=== PATIENT | female | born 1975 | race Two or more races ===

== ENCOUNTER → 2024-10-13 | Outpatient (CLI) | payer BC, SELFPAY ==
--- NOTE | 2024-10-13 14:21 | XR_ITS ---
Examination: Shoulder,right, 3 views Technique: Shoulder AP internal rotation, AP external rotation, Y view shoulder, 3 views Exam date and time :October 13, 2024 1444 hours INDICATIONS: Right shoulder pain beginning one week ago FINDINGS: No shoulder fracture or dislocation Mild calcific tendinitis No AC joint separation IMPRESSION: Mild right shoulder calcific tendinitis
== END | disposition home or self-care (01) ==
PROVIDERS: PCP Family Medicine
DX: M75.31 Calcific tendinitis of right shoulder (principal)
CPT/HCPCS: 73030

== ENCOUNTER → 2024-12-08 | Outpatient (CLI) | payer BC, SELFPAY ==
[2024-12-08 08:11] LABS: Collection Type, Urine Clean Catch
[2024-12-08 08:41] LABS: Bilirubin,Urine Negative (Negative); Blood,Urine Negative (Negative); Clarity,Urine Clear (Clear/Hazy); Color,Urine Yellow (Lt Yel-Yel); Culture Indicated,Urine Not Indicated; Glucose, Urine Negative (Negative); Ketones,Urine Negative (Negative); Leukocyte Esterase,Urine Negative (Negative); Nitrite,Urine Negative (Negative); Protein,Urine Trace (Neg - Trace); RBC,Urine 3 /hpf (0-3); Squamous Epithelial Cell,Urine 16 /hpf (0-5); Urobilinogen,Urine Negative mg/dL (0.0-1.0); WBC,Urine 1 /hpf (0-5)
[2024-12-08 08:55] LABS: Alanine Aminotransferase 22 U/L (10-49); Albumin, Serum 4.1 gm/dL (3.5-5.0); Albumin/Globulin Ratio 1.7 (1.2-2.2); Alkaline Phosphatase 65 U/L (46-116); Anion Gap 9 (7-16); Aspartate Amino Transferase 17 U/L (0-34); BUN/Creatinine Ratio 16 Ratio (12-20); Bilirubin,Total 0.6 mg/dL (0.3-1.2); Blood Urea Nitrogen 13 mg/dL (9-23); Calcium 9.5 mg/dL (8.3-10.6); Calcium (Corrected) 9.5 mg/dL (8.5-10.1); Carbon Dioxide 23.6 mMol/L (20.0-31.0); Cardiac Risk Estimate 4.3 RATIO (3.7-5.6); Chloride 106 mMol/L (98-107); Cholesterol 237 mg/dL (132-200); Creatinine (Component) 0.8 mg/dL (0.6-1.3); Globulin 2.4 gm/dL (2.3-3.5); Glucose 84 mg/dL (74-106); HDL Cholesterol 55 mg/dL (40-60); LDL Cholesterol,Calculated 156 mg/dL (0-130); Osmolality,Calculated 276 (275-295); Potassium 4.4 mMol/L (3.4-5.1); Sodium 139 mMol/L (136-145); Thyroid Stimulating Hormone 1.93 uIU/mL (0.55-4.78); Total Protein 6.5 gm/dL (5.7-8.2); Triglycerides 131 mg/dL (30-150); eGFR > 60 See Note
[2024-12-08 09:00] LABS: Basophils # (Auto) 0.1 Thou/mm3 (0.0-0.2); Basophils % (Auto) 1 % (0-2.5); Eosinophils # (Auto) 0.1 Thou/mm3 (0.0-0.5); Eosinophils % (Auto) 2 % (0-10); Hematocrit 40.8 % (36.0-46.0); Hemoglobin 14.3 g/dL (12.0-16.0); Immature Granulocytes % (Auto) 0 % (0-0); Immature Granulocytes Auto 0.01 Thou/mm3 (0.00-0.00); Lymphocytes # (Auto) 2.2 Thou/mm3 (1.0-4.8); Lymphocytes % (Auto) 31 % (10-50); Mean Corpuscular Hemoglobin 31.6 pg (25.0-35.0); Mean Corpuscular Volume 90 fL (80-100); Monocytes # (Auto) 0.5 Thou/mm3 (0.0-0.8); Monocytes % (Auto) 7 % (0-12); Neutrophils # (Auto) 4.3 Thou/mm3 (1.8-7.7); Neutrophils % (Auto) 60 % (37-80); Nucleated Red Blood Cell % 0 /100 WBC (0); Platelet Count 248 Thou/mm3 (140-440); RDW Standard Deviation 40.2 fL (36.4-46.3); Red Blood Count 4.53 Miln/mm3 (4.00-5.20); White Blood Count 7.2 Thou/mm3 (3.6-11.0)
[2024-12-08 09:19] LABS: Vitamin B12 464 pg/mL (211-911); Vitamin D 25 Hydroxy Total 43.6 ng/mL (7.3-40.2)
== END | disposition home or self-care (01) ==
PROVIDERS: PCP Family Medicine; Referring Provider Physician Assistant; Visit Provider Physician Assistant
DX: Z00.00 Encounter for general adult medical examination without abnormal findings (principal); E55.9 Vitamin D deficiency, unspecified; E78.5 Hyperlipidemia, unspecified
CPT/HCPCS: 36415; 80053; 80061; 81001; 82306; 82607; 84443; 85025

== ENCOUNTER → 2024-12-12 | Outpatient (CLI) | payer BC, SELFPAY ==
--- NOTE | 2024-12-12 13:45 | XR_ITS ---
Examination: Breast ultrasound complete, bilateral Date and time of exam: December 12, 2024 1435 hours INDICATIONS: Ultrasound May 29, 2024 left breast 2:00 nodule 13 mm Technique: Real-time grayscale ultrasonographic imaging bilateral breasts, including all 4 quadrants as well as nipple retroareolar and axillary regions. Findings: Sonographic images right breast 12:00 cyst 4 x 4 millimeter 11:00 oval mass versus glandular tissue 6 x 7 mm 3.6 cm right axillary lymph node Sonographic images left breast 2:00 oval mass with the breast biopsy marker 13 x 13 mm 8:00 cyst 4 x 4 millimeter 3.6 cm axillary lymph node Smaller cysts IMPRESSION: BI-RADS Category 3: Probably benign findings Recommend 1 additional 6 month bilateral breast sonography follow-up to document stability of solid nodules described above
--- NOTE | 2024-12-12 14:45 | XR_ITS ---
Examination: Screening digital mammography, bilateral Computer aided detection 3-D breast Tomosynthesis, bilateral Date and time of exam: December 12, 2024 1508 hours Compared to mammograms dating to March 03, 2019 Indication: Screening Technique: Nonmagnified MLO, CC views of the breasts to been obtained, reconstructed from 3-D Tomosynthesis images. R2 computer aided detection program utilized for evaluation of suspicious masses and/or abnormal calcifications. 3-D Tomosynthesis images obtained. Findings: The breasts are heterogeneously dense, which may obscure small masses Grouped microcalcifications upper right breast posterior depth on the MLO view Impression: BI-RADS Category 0: Incomplete: Need additional imaging evaluation Grouped microcalcifications upper right breast posterior depth on the MLO view, recommend follow-up magnification spot compression views of these calcifications, recommend follow-up spot magnification views extreme posterior outer right breast CC view, right breast sonography to complete the workup
== END | disposition home or self-care (01) ==
PROVIDERS: PCP Family Medicine; Referring Provider Surgery; Visit Provider Surgery
DX: Z12.31 Encounter for screening mammogram for malignant neoplasm of breast (principal); R92.0 Mammographic microcalcification found on diagnostic imaging of breast; N63.21 Unspecified lump in the left breast, upper outer quadrant
CPT/HCPCS: 76641; 77063; 77067

== ENCOUNTER → 2025-01-01 | Outpatient (CLI) | payer BC, SELFPAY ==
[2025-01-05 06:40] LABS: Fecal Globin Result NOT DETECTED (NOT DETECTED)
== END | disposition home or self-care (01) ==
LOC: SLDO 17:17
PROVIDERS: PCP Physician Assistant; Referring Provider Physician Assistant; Visit Provider Physician Assistant
DX: Z00.00 Encounter for general adult medical examination without abnormal findings (principal); E55.9 Vitamin D deficiency, unspecified; E78.5 Hyperlipidemia, unspecified
CPT/HCPCS: 82274; G0328

== ENCOUNTER → 2025-01-24 | Outpatient (CLI) | payer BC, SELFPAY ==
--- NOTE | 2025-01-24 09:30 | XR_ITS ---
Examination: Breast ultrasound, unilateral, right complete Date and time of exam: December 24, 2024 1010 hours INDICATIONS: Mammogram December 12, 2024 grouped microcalcifications upper right breast posterior depth Technique: Real-time khan scale ultrasonographic imaging performed right breast including all 4 quadrants as well as nipple retroareolar and axillary region. Findings: 11:00 cyst 7 x 7 mm 27 mm right axillary lymph node No suspicious breast nodules IMPRESSION: BI-RADS Category 2: Benign findings
--- NOTE | 2025-01-24 10:00 | XR_ITS ---
Examination: Diagnostic digital mammography, unilateral, right Computer aided detection 3-D breast Tomosynthesis, unilateral Date and time of exam: January 24, 2025 0959 hours INDICATIONS: Mammogram December 12, 2024 grouped microcalcifications upper right breast posterior depth Technique: Nonmagnified MLO, CC views of the right breast have been obtained, reconstructed from 3-D Tomosynthesis images. R2 computer aided detection program utilized for evaluation of suspicious masses and/or abnormal calcifications. 3-D Tomosynthesis images obtained. Findings: The breasts are heterogeneously dense, which may obscure small masses Probably benign secretory microcalcifications right breast Impression: BI-RADS category 3: Probably benign findings One additional 6 month right mammogram follow-up recommended
== END | disposition home or self-care (01) ==
PROVIDERS: Referring Provider Surgery; Visit Provider Surgery
DX: R92.331 Mammographic heterogeneous density, right breast (principal); R92.0 Mammographic microcalcification found on diagnostic imaging of breast
CPT/HCPCS: 76641; 77061; 77065; G0279

== ENCOUNTER → 2025-03-26 | Outpatient (CLI) | payer BC, SELFPAY ==
[2025-03-26 09:27] LABS: Alanine Aminotransferase 19 U/L (10-49); Albumin, Serum 4.4 gm/dL (3.5-5.0); Albumin/Globulin Ratio 1.8 (1.2-2.2); Alkaline Phosphatase 60 U/L (46-116); Anion Gap 12 (7-16); Aspartate Amino Transferase 19 U/L (0-34); BUN/Creatinine Ratio 8 Ratio (12-20); Bilirubin,Total 0.5 mg/dL (0.3-1.2); Blood Urea Nitrogen 6 mg/dL (9-23); Carbon Dioxide 25.1 mMol/L (20.0-31.0); Cardiac Risk Estimate 3.2 RATIO (3.7-5.6); Chloride 105 mMol/L (98-107); Cholesterol 155 mg/dL (132-200); Creatinine (Component) 0.8 mg/dL (0.6-1.3); Globulin 2.5 gm/dL (2.3-3.5); Glucose 96 mg/dL (74-106); HDL Cholesterol 49 mg/dL (40-60); LDL Cholesterol,Calculated 77 mg/dL (0-130); Osmolality,Calculated 280 (275-295); Potassium 3.9 mMol/L (3.4-5.1); Sodium 142 mMol/L (136-145); Total Protein 6.9 gm/dL (5.7-8.2); Triglycerides 143 mg/dL (30-150); eGFR > 60 See Note
== END | disposition home or self-care (01) ==
LOC: COPL 08:18
PROVIDERS: PCP Family Medicine; Referring Provider Physician Assistant; Visit Provider Physician Assistant
DX: E78.5 Hyperlipidemia, unspecified (principal)
CPT/HCPCS: 36415; 80053; 80061

== ENCOUNTER → 2025-04-04 | Outpatient (CLI) | payer BC, SELFPAY ==
[2025-04-04 14:46] LABS: Collection Type, Urine Clean Catch
[2025-04-04 15:03] LABS: Basophils # (Auto) 0.1 Thou/mm3 (0.0-0.2); Basophils % (Auto) 1 % (0-2.5); Eosinophils # (Auto) 0.2 Thou/mm3 (0.0-0.5); Eosinophils % (Auto) 2 % (0-10); Hematocrit 39.4 % (36.0-46.0); Hemoglobin 14.4 g/dL (12.0-16.0); Immature Granulocytes % (Auto) 0 % (0-0); Immature Granulocytes Auto 0.03 Thou/mm3 (0.00-0.00); Lymphocytes # (Auto) 3.5 Thou/mm3 (1.0-4.8); Lymphocytes % (Auto) 33 % (10-50); Mean Corpuscular HGB Conc 36.5 g/dl (31.0-37.0); Mean Corpuscular Hemoglobin 32.4 pg (25.0-35.0); Mean Corpuscular Volume 89 fL (80-100); Monocytes # (Auto) 0.9 Thou/mm3 (0.0-0.8); Monocytes % (Auto) 8 % (0-12); Neutrophils # (Auto) 5.9 Thou/mm3 (1.8-7.7); Neutrophils % (Auto) 55 % (37-80); Nucleated Red Blood Cell % 0 /100 WBC (0); Platelet Count 382 Thou/mm3 (140-440); RDW Standard Deviation 39.4 fL (36.4-46.3); Red Blood Count 4.44 Miln/mm3 (4.00-5.20); White Blood Count 10.6 Thou/mm3 (3.6-11.0)
[2025-04-04 15:11] LABS: Bilirubin,Urine Negative (Negative); Blood,Urine Negative (Negative); Color,Urine Lt-Yellow (Lt Yel-Yel); Culture Indicated,Urine Not Indicated; Glucose, Urine Negative (Negative); Ketones,Urine Negative (Negative); Leukocyte Esterase,Urine Negative (Negative); Nitrite,Urine Negative (Negative); Protein,Urine Negative (Neg - Trace); RBC,Urine 1 /hpf (0-3); Specific Gravity,Urine 1.008 (1.001-1.035); Squamous Epithelial Cell,Urine 17 /hpf (0-5); Urobilinogen,Urine Negative mg/dL (0.0-1.0); WBC,Urine 1 /hpf (0-5)
[2025-04-04 15:13] LABS: Alanine Aminotransferase 22 U/L (10-49); Albumin, Serum 4.6 gm/dL (3.5-5.0); Albumin/Globulin Ratio 1.8 (1.2-2.2); Alkaline Phosphatase 58 U/L (46-116); Amylase 64 U/L (30-118); Anion Gap 11 (7-16); BUN/Creatinine Ratio 8 Ratio (12-20); Bilirubin,Total 0.5 mg/dL (0.3-1.2); Blood Urea Nitrogen 6 mg/dL (9-23); Calcium 9.2 mg/dL (8.3-10.6); Calcium (Corrected) 9.2 mg/dL (8.5-10.1); Carbon Dioxide 25.8 mMol/L (20.0-31.0); Chloride 103 mMol/L (98-107); Creatinine (Component) 0.8 mg/dL (0.6-1.3); Globulin 2.5 gm/dL (2.3-3.5); Glucose 87 mg/dL (74-106); Lipase 35 U/L (12-53); Osmolality,Calculated 276 (275-295); Potassium 3.6 mMol/L (3.4-5.1); Sodium 140 mMol/L (136-145); Total Protein 7.1 gm/dL (5.7-8.2); eGFR > 60 See Note
[2025-04-04 15:20] LABS: Clarity,Urine Hazy (Clear/Hazy)
[2025-04-05 07:46] LABS: Urea Breath Test Negative (Negative)
== END | disposition home or self-care (01) ==
LOC: COPL 13:31
PROVIDERS: PCP Physician Assistant; Referring Provider Physician Assistant; Visit Provider Physician Assistant
DX: R10.9 Unspecified abdominal pain (principal)
CPT/HCPCS: 36415; 80053; 81001; 82150; 83013; 83014; 83690; 85025

== ENCOUNTER → 2025-04-26 | Outpatient (CLI) | payer BC, SELFPAY ==
--- NOTE | 2025-04-26 16:30 | XR_ITS ---
Examination: CT abdomen and pelvis without contrast. Coronal 3-D reconstructions. Sagittal 2-D reconstructions. Date and time of exam:April 26, 2025 at 1636 hours Comparison January 11, 2023 INDICATIONS: Cervical carcinoma diagnosed in 2012, umbilical pain and constipation 2 months CTDI: vol (mGy): 9.12 DLP: (mGycm): 521 Technique: Axial images of the abdomen have been obtained, 3 mm slice thickness Intravenous contrast material has not been administered. Low dose protocols were performed. One or more of the following dose reduction techniques were used; automated exposure control, adjustment of the mA and/or KV according to patient size, use of iterative reconstruction technique. Findings: No focal liver splenic lesion Absent gallbladder No pancreatic or adrenal mass No renal or ureteral calculi No abdominal lymphadenopathy No bowel obstruction Normal appendix Left external iliac lymphadenopathy 26 mm, right external iliac lymphadenopathy 22 mm Absent uterus Contracted urinary bladder Intact osseous structures Impression: Pelvic lymphadenopathy as above, consider PET CT scan follow-up
== END | disposition home or self-care (01) ==
LOC: CCTX 16:05
PROVIDERS: PCP Physician Assistant; Referring Provider Physician Assistant; Visit Provider Physician Assistant
DX: R59.0 Localized enlarged lymph nodes (principal)
CPT/HCPCS: 74176

== ENCOUNTER → 2025-05-24 | Outpatient (CLI) | payer BC, SELFPAY ==
--- NOTE | 2025-05-24 15:30 | XR_ITS ---
Examination: Ultrasound soft tissue extremity left neck TECHNIQUE: Sonographic images soft tissue neck Date and time: May 24, 2025 1533 hours INDICATIONS: Palpable lump left neck one month FINDINGS: 9 x 5 x 8 mm lymph node at the area concern left neck IMPRESSION: Small nonspecific lymph node as above, consider 6 month follow-up ultrasound soft tissue neck
== END | disposition home or self-care (01) ==
PROVIDERS: PCP Physician Assistant; Referring Provider Physician Assistant; Visit Provider Physician Assistant
DX: R22.1 Localized swelling, mass and lump, neck (principal)
CPT/HCPCS: 76882

== ENCOUNTER 2025-07-05 09:06 | Outpatient (RCR) | payer BC, SELFPAY ==
--- NOTE | 2025-07-09 00:36 | CTCCONSULT_ITS ---
Patient: SAMEER SAEED : 1975 MR#: [id number] Page 2 of 4 CONSULTATION NOTE DATE OF CONSULTATION: 07/05/2025 NAME: SAMEER SAEED ACCOUNT: [id number] : 1975 AGE: 50 REFERRING PHYSICIAN: Caitlin Birmingham MD PRIMARY PHYSICIAN: Caitlin Birmingham MD REASON FOR VISIT: #4 recurrence of cervical cancer ONCOLOGY HISTORY: DIAGNOSIS: Cervical cancer s/p hysterectomy DATE OF DIAGNOSIS: 09/18/2013 STAGE/TNM: Stage I 09/18/20 13 severe dysplasia with a squamous carcinoma in situ involving surface and underlying metaplastic endocervical glands JACKSON-3 and HSIL adenocarcinoma in situ identified in separate fragmented and inflamed strips of endocervical mucosa endometrial biopsy was negative 10/19/2013 Uterine cervix with invasive adenocarcinoma 1 cm in maximum width 10.6 cm maximum depth tumor grade G3 poorly differentiated no lymphatic invasion carcinoma did not extend to uterine corpus proliferative endometrium without endometrial hyperplasia or malignancy uterine serosa without significant diagno stic pathological features uterine corpus shows focal superficial adenomyosis with no features of cancer final stage stage I B1 T1b 1 NX MX TREATMENT HISTORY: Care?Plan Start?Date Cycle Day Intent HISTORY OF PRESENT ILLNESS: 50-year-old female is presenting with a recent finding of lymphadenopathy on her CT scan patient do not have any complaints. Patient had stage I cervix cancer which was treated with hysterectomy. 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 rosuvastatin - 10 mg 1 tab Daily Medications Last Reconciled by Nancy Downey MA on 07/05/2025 ALLERGIES: No Known Drug Allergies REVIEW OF SYSTEMS: A complete 14-point review of systems was performed and is negative except as noted in interval history. PHYSICAL EXAMINATION: VITAL SIGNS: Temperature?98, B/P?145/85, Height?64?inches, Oxygen?Saturation?94% Weight?180?lbs PAIN: 0 - No pain ECOG Performance Status: 0 - Asymptomatic and fully active GENERAL APPEARANCE: Appears well, in no apparent distress, appropriately interactive. HEENT: Normocephalic, no temporal wasting, normal conjunctiva, no scleral icterus, normal hearing, lips without lesions, neck normal range of motion. CARDIOVASCULAR: Not assessed. PULMONARY: Normal respiratory effort, no respiratory distress or use of accessory muscles, speaking in full sentences, no tachypnea. EXTREMITIES: No pedal edema or cyanosis. SKIN: Normal skin appearance. NEUROLOGIC: Alert and oriented x4. PSHYCHIATRIC: Appropriate affect, mood normal, behavior normal, intact thought and speech. LABORATORY DATA: I have personally reviewed and interpreted each of the patient?s relevant lab tests, abnormal findings are below: Date ASSESSMENT/PLAN: cervical cancer There is a concern for recurrence of cervical cancer Will get PET CT scan to evaluate for any hypermetabolic lymph nodes If lodes are positive we will get a biopsy Patient has implant in her foot so may not be a candidate for MRI as per her Will wait for PET CT scan findings Advised to see chief fundraising officer for pelvic exam ORDERS: Order # Description [id number] Comprehensive Metabolic Panel - 12 + CBC with Auto Diff + CA [id number] Initial PET/CT of Skull to Mid-Thigh [id number] Follow Up 4 Week [id number] MRI + Pelvis + With W/O Contrast [id number] CBC with Auto Diff + Comprehensive Metabolic Panel - 12 + CA [id number] RETURN TO CLINIC: I reviewed the diagnosis, prognosis, and recommended treatment/procedure options with the patient (and/or their legal sales representative metals), including the potential benefits, risks, side effects and alternative therapies. We also discussed the option of no treatment and the possibility of clinical trial participation, if applicable. All questions were addressed, and they demonstrated understanding. They provided informed consent to proceed with the proposed plan of care. BILLING AND COMPLIANCE: I reviewed external records from providers outside my specialty as summarized above. I spent a total of 50 minutes on this patient?s care on the day of their visit excluding time spent related to any billed procedures. This time includes time spent with the patient as well as time spent documenting in the medical record, reviewing patients records and tests, obtaining history, placing orders, communicating with other healthcare professionals, counseling the patient, family or caregiver, and/or care coordination for the diagnoses above. Electronically Signed by: Mark Wheeler MD T: 12:34 AM CC: PCP: Caitlin Birmingham Referring: Caitlin Birmingham This document was completed utilizing speech recognition software. Grammatical errors, random word insertions, pronoun errors, and incomplete sentences are an occasional consequence of this system due to software limitations, ambient noise, and hardware issues. Any formal questions or concerns about the content, text or information contained within the body of this dictation should be directly addressed to the provider for clarification.
== END 2025-07-24 23:59 | disposition home or self-care (01) ==
LOC: SCTC 09:06
PROVIDERS: PCP Physician Assistant; Referring Provider Physician Assistant; Visit Provider Internal Medicine Hematology & Oncology
DX: R59.0 Localized enlarged lymph nodes (principal); Z85.41 Personal history of malignant neoplasm of cervix uteri; Z90.710 Acquired absence of both cervix and uterus
CPT/HCPCS: 99213; G0463

== ENCOUNTER → 2025-07-31 | Outpatient (CLI) | payer BC, SELFPAY ==
--- NOTE | 2025-07-31 11:00 | XR_ITS ---
EXAMINATION: PET/CT FUSION SKULL TO THIGH EXAM DATE AND TIME: July 31, 2025, 1149 hours, comparison CT abdomen pelvis April 26, 2025, January 11, 2023 INDICATIONS: Diagnosis cervical carcinoma, left external iliac lymph node 26 mm right external iliac lymph node [address] abdomen/pelvis April 26, 2025, restaging posttreatment CTDI:vol (mGy) 7.11 DLP: (mGycm) 649.21 PROCEDURE: 16.9 mCi FDG was administered intravenously To allow for distribution and uptake of radiotracer, the patient was allowed to rest quietly in a shielded room. Imaging was performed on an integrated 16-slice PET/CT scanner, with scanning from the skull base to the mid thigh. Serum blood glucose at the time of the injection was measured 108 mg/dL. CT scanning was performed without oral or intravenous contrast material. FINDINGS: Head and Neck: There is no hien hypermetabolism in the neck. The visualized portions of the brain are normal in appearance on CT. Chest: There is no hien hypermetabolism in the chest. There are no pulmonary nodules. Abdomen and Pelvis: There is no hien hypermetabolism in retroperitoneal or pelvic chains. The spleen is normal in size and FDG avidity. Musculoskeletal: Marrow uptake is within normal range. IMPRESSION: No hypermetabolic abdominal or pelvic lymphadenopathy on this study Recommend pelvic sonography follow-up to exclude enlarged left ovary
== END | disposition home or self-care (01) ==
PROVIDERS: PCP Physician Assistant; Referring Provider Internal Medicine Hematology & Oncology; Visit Provider Internal Medicine Hematology & Oncology
DX: C53.9 Malignant neoplasm of cervix uteri, unspecified (principal)
CPT/HCPCS: 78815; A9552

== ENCOUNTER → 2025-08-03 | Outpatient (CLI) | payer BC, SELFPAY ==
[2025-08-03 11:37] LABS: Basophils # (Auto) 0.0 Thou/mm3 (0.0-0.2); Basophils % (Auto) 0 % (0-2.5); Eosinophils # (Auto) 0.1 Thou/mm3 (0.0-0.5); Eosinophils % (Auto) 2 % (0-10); Hematocrit 38.6 % (36.0-46.0); Hemoglobin 13.6 g/dL (12.0-16.0); Immature Granulocytes Auto 0.02 Thou/mm3 (0.00-0.00); Lymphocytes # (Auto) 2.0 Thou/mm3 (1.0-4.8); Lymphocytes % (Auto) 26 % (10-50); Mean Corpuscular HGB Conc 35.2 g/dl (31.0-37.0); Mean Corpuscular Hemoglobin 31.6 pg (25.0-35.0); Mean Corpuscular Volume 90 fL (80-100); Monocytes # (Auto) 0.3 Thou/mm3 (0.0-0.8); Monocytes % (Auto) 4 % (0-12); Neutrophils # (Auto) 5.2 Thou/mm3 (1.8-7.7); Neutrophils % (Auto) 68 % (37-80); Nucleated Red Blood Cell # 0.00 Thou/mm3 (0.00-0.00); Nucleated Red Blood Cell % 0 /100 WBC (0); Platelet Count 343 Thou/mm3 (140-440); RDW Standard Deviation 40.6 fL (36.4-46.3); Red Blood Count 4.30 Miln/mm3 (4.00-5.20); White Blood Count 7.7 Thou/mm3 (3.6-11.0)
[2025-08-03 11:49] LABS: Alanine Aminotransferase 33 U/L (10-49); Albumin, Serum 4.4 gm/dL (3.5-5.0); Albumin/Globulin Ratio 1.5 (1.2-2.2); Alkaline Phosphatase 57 U/L (46-116); Anion Gap 10 (7-16); Aspartate Amino Transferase < 8 U/L (0-34); BUN/Creatinine Ratio 8 Ratio (12-20); Bilirubin,Total 0.8 mg/dL (0.3-1.2); Blood Urea Nitrogen 6 mg/dL (9-23); Calcium 9.5 mg/dL (8.3-10.6); Calcium (Corrected) 9.5 mg/dL (8.5-10.1); Carbon Dioxide 24.2 mMol/L (20.0-31.0); Chloride 105 mMol/L (98-107); Creatinine (Component) 0.8 mg/dL (0.6-1.3); Globulin 2.9 gm/dL (2.3-3.5); Glucose 169 mg/dL (74-106); Osmolality,Calculated 279 (275-295); Potassium 3.6 mMol/L (3.4-5.1); Sodium 139 mMol/L (136-145); Total Protein 7.3 gm/dL (5.7-8.2); eGFR > 60 See Note
[2025-08-03 12:06] LABS: CA 125 11.0 U/mL (<30.2)
== END | disposition home or self-care (01) ==
LOC: SLAB 11:05
PROVIDERS: PCP Physician Assistant; Referring Provider Internal Medicine Hematology & Oncology; Visit Provider Internal Medicine Hematology & Oncology
DX: Z85.41 Personal history of malignant neoplasm of cervix uteri (principal)
CPT/HCPCS: 36415; 80053; 85025; 86304

== ENCOUNTER 2025-08-06 07:22 | Outpatient (CLI) | payer BC, SELFPAY ==
[2025-08-02 10:32] VITALS: BMI 30.9
[2025-08-03 11:36] LABS: Basophils # (Auto) 0.0 Thou/mm3 (0.0-0.2); Basophils % (Auto) 0 % (0-2.5); Eosinophils # (Auto) 0.2 Thou/mm3 (0.0-0.5); Eosinophils % (Auto) 3 % (0-10); Hematocrit 38.5 % (36.0-46.0); Hemoglobin 13.6 g/dL (12.0-16.0); Immature Granulocytes Auto 0.02 Thou/mm3 (0.00-0.00); Lymphocytes # (Auto) 1.9 Thou/mm3 (1.0-4.8); Lymphocytes % (Auto) 25 % (10-50); Mean Corpuscular HGB Conc 35.3 g/dl (31.0-37.0); Mean Corpuscular Hemoglobin 31.9 pg (25.0-35.0); Mean Corpuscular Volume 90 fL (80-100); Monocytes # (Auto) 0.3 Thou/mm3 (0.0-0.8); Monocytes % (Auto) 4 % (0-12); Neutrophils # (Auto) 5.2 Thou/mm3 (1.8-7.7); Neutrophils % (Auto) 68 % (37-80); Nucleated Red Blood Cell # 0.00 Thou/mm3 (0.00-0.00); Nucleated Red Blood Cell % 0 /100 WBC (0); Platelet Count 316 Thou/mm3 (140-440); RDW Standard Deviation 40.5 fL (36.4-46.3); Red Blood Count 4.27 Miln/mm3 (4.00-5.20); White Blood Count 7.6 Thou/mm3 (3.6-11.0)
[2025-08-03 11:46] LABS: Blood Urea Nitrogen 7 mg/dL (9-23); Creatinine (Component) 0.8 mg/dL (0.6-1.3); Estimated Creatinine Clearance 85.0 mL/min (>60); eGFR > 60 See Note
[2025-08-03 11:57] LABS: INR 1.0 (0.9-1.3); Partial Thromboplastin Time 28.9 Seconds (22.0-36.0); Prothrombin Time 10.7 Seconds (9.0-12.2)
[2025-08-06] VITALS (13 sets, daily range): BP systolic 126–157; BP diastolic 68–94; PULSE 56–72; RESP 12–15; TEMP 36.3–37.2; O2SAT 95–100
--- NOTE | 2025-08-06 08:30 | XR_ITS ---
EXAM: CT-guided left pelvic lymph node biopsy. DATE: 08/06/2025, 9:17 a.m. COMPARISON: 07/31/2025 INDICATION: Lymphadenopathy. FINDINGS: After discussion of risks and benefits informed consent was obtained. The patient was brought to the CT suite and placed prone on the exam table. Preliminary contrast enhanced CT of the pelvis again demonstrated enlargement of left pelvic lymph nodes along the left internal iliac chain. These were targeted for biopsy. The overlying skin was cleaned and draped in normal sterile surgical fashion. 10 cc 1% lidocaine was used for local anesthesia. Conscious sedation was begun with direct continuous nursing supervision. Using CT guidance gauge needle biopsy device was sequentially advanced into the targeted lymph node. Multiple core biopsy samples were obtained and passed to pathology who deemed the samples adequate at the time of the procedure. The needle was withdrawn. Hemostasis was achieved. The access site was covered with sterile dressing. Postbiopsy CT was performed. No evidence of hemorrhage or acute complication seen. Patient tolerated the procedure well and was returned to the holding area for post procedural observation. IMPRESSION: Successful left pelvic lymph node biopsy as above.
[2025-08-06] MEDS: fentaNYL CIT INJ 50 mCg/ML AMP 2ML 150 MCG IVP (09:44)
[2025-08-06] MEDS: MIDAZOLAM INJ 1 MG/ML VIAL 2 ML 1.5 MG IVP (09:44)
== END 2025-08-06 11:19 | disposition home or self-care (01) ==
PROVIDERS: Radiology Diagnostic Radiology; PCP Physician Assistant; Referring Provider Internal Medicine Hematology & Oncology; Visit Provider Internal Medicine Hematology & Oncology
DX: R59.0 Localized enlarged lymph nodes (principal)
CPT/HCPCS: 38505; 36415; 77012; 82565; 84520; 85025; 85610; 85730; 99152; J2250; J3010

== ENCOUNTER → 2025-08-09 | Outpatient (CLI) | payer BC, SELFPAY ==
[2025-08-09 16:18] LABS: Collection Type, Urine Clean Catch
[2025-08-09 16:37] LABS: Basophils # (Auto) 0.0 Thou/mm3 (0.0-0.2); Basophils % (Auto) 1 % (0-2.5); Eosinophils # (Auto) 0.3 Thou/mm3 (0.0-0.5); Eosinophils % (Auto) 4 % (0-10); Hematocrit 37.9 % (36.0-46.0); Hemoglobin 13.3 g/dL (12.0-16.0); Immature Granulocytes Auto 0.02 Thou/mm3 (0.00-0.00); Lymphocytes # (Auto) 2.5 Thou/mm3 (1.0-4.8); Lymphocytes % (Auto) 31 % (10-50); Mean Corpuscular HGB Conc 35.1 g/dl (31.0-37.0); Mean Corpuscular Hemoglobin 31.7 pg (25.0-35.0); Mean Corpuscular Volume 90 fL (80-100); Monocytes # (Auto) 0.5 Thou/mm3 (0.0-0.8); Monocytes % (Auto) 6 % (0-12); Neutrophils # (Auto) 4.7 Thou/mm3 (1.8-7.7); Neutrophils % (Auto) 58 % (37-80); Nucleated Red Blood Cell # 0.00 Thou/mm3 (0.00-0.00); Nucleated Red Blood Cell % 0 /100 WBC (0); Platelet Count 319 Thou/mm3 (140-440); RDW Standard Deviation 41.3 fL (36.4-46.3); Red Blood Count 4.20 Miln/mm3 (4.00-5.20); White Blood Count 8.1 Thou/mm3 (3.6-11.0)
[2025-08-09 16:54] LABS: Alanine Aminotransferase 27 U/L (10-49); Albumin, Serum 4.2 gm/dL (3.5-5.0); Albumin/Globulin Ratio 1.8 (1.2-2.2); Alkaline Phosphatase 54 U/L (46-116); Anion Gap 9 (7-16); Aspartate Amino Transferase 25 U/L (0-34); BUN/Creatinine Ratio 8 Ratio (12-20); Bilirubin,Total 0.6 mg/dL (0.3-1.2); Blood Urea Nitrogen 6 mg/dL (9-23); Calcium 9.1 mg/dL (8.3-10.6); Calcium (Corrected) 9.1 mg/dL (8.5-10.1); Carbon Dioxide 27.1 mMol/L (20.0-31.0); Chloride 103 mMol/L (98-107); Creatinine (Component) 0.8 mg/dL (0.6-1.3); Globulin 2.4 gm/dL (2.3-3.5); Glucose 129 mg/dL (74-106); Osmolality,Calculated 277 (275-295); Potassium 3.6 mMol/L (3.4-5.1); Sodium 139 mMol/L (136-145); Total Protein 6.6 gm/dL (5.7-8.2); eGFR > 60 See Note
[2025-08-09 17:38] LABS: Bacteria,Urine Rare; Bilirubin,Urine Negative (Negative); Blood,Urine Negative (Negative); Clarity,Urine Clear (Clear/Hazy); Color,Urine Lt-Yellow (Lt Yel-Yel); Culture Indicated,Urine Not Indicated; Glucose, Urine Negative (Negative); Ketones,Urine Negative (Negative); Leukocyte Esterase,Urine Negative (Negative); Nitrite,Urine Negative (Negative); PH,Urine 6.0 (5.0-7.0); Protein,Urine Negative (Neg - Trace); RBC,Urine 3 /hpf (0-3); Specific Gravity,Urine 1.023 (1.001-1.035); Squamous Epithelial Cell,Urine 45 /hpf (0-5); Urobilinogen,Urine Negative mg/dL (0.0-1.0); WBC,Urine 2 /hpf (0-5)
== END | disposition home or self-care (01) ==
LOC: COPL 15:54
PROVIDERS: PCP Family Medicine; Referring Provider Physician Assistant; Visit Provider Physician Assistant
DX: R10.9 Unspecified abdominal pain (principal)
CPT/HCPCS: 36415; 80053; 81001; 85025

== ENCOUNTER → 2025-08-10 | Outpatient (CLI) | payer BC, SELFPAY ==
--- NOTE | 2025-08-10 15:24 | XR_ITS ---
Examination: CT abdomen and pelvis without contrast. Coronal 3-D reconstructions. Sagittal 2-D reconstructions. Date and time of exam: August 10 2025, 1547 hours, comparison PET/CT scan July 31, 2025 INDICATIONS: Diagnosis cervical carcinoma, history pelvic lymphadenopathy, left lower pelvic pain 2 months, status post hysterectomy CTDI: vol (mGy): 10.2 DLP: (mGycm): 556 Technique: Axial images of the abdomen have been obtained, 3 mm slice thickness Intravenous contrast material has not been administered. Low dose protocols were performed. One or more of the following dose reduction techniques were used; automated exposure control, adjustment of the mA and/or KV according to patient size, use of iterative reconstruction technique. Findings: No focal liver or splenic lesions Absent gallbladder No pancreatic or adrenal mass No renal or ureteral calculi No abdominal lymphadenopathy No pelvic lymphadenopathy Normal appendix 30 mm hypodense left adnexal mass Absent uterus Urinary bladder intact Prominent osteopenia with moderate disc narrowing L5-S1 IMPRESSION: 30 mm hypodense left adnexal mass, recommend transvaginal transabdominal pelvic sonography follow-up
== END | disposition home or self-care (01) ==
LOC: CDIM 15:18
PROVIDERS: PCP Family Medicine; Referring Provider Physician Assistant; Visit Provider Physician Assistant
DX: E27.8 Other specified disorders of adrenal gland (principal)
CPT/HCPCS: 74176

== ENCOUNTER → 2025-08-13 | Outpatient (CLI) | payer BC, SELFPAY ==
--- NOTE | 2025-08-13 15:04 | XR_ITS ---
Examination: Transvaginal ultrasound of the pelvis, complete Technique: Transvaginal sonographic images pelvis performed using khan scale imaging Exam date and time: August 13, 2025, 1558 hours INDICATIONS: 30 mm hypodense left adnexal mass on CT study August 10, 2025, abdominal and pelvic pain this month FINDINGS: Absent uterus Right ovary obscured by bowel gas. Left ovary 3.3 cm arterial flow, 21 x 15 x 19 mm cyst IMPRESSION: Left ovarian simple cyst, 21 x 15 x 19 mm
== END | disposition home or self-care (01) ==
PROVIDERS: PCP Student in an Organized Health Care Education/Training Program; Referring Provider Student in an Organized Health Care Education/Training Program; Visit Provider Student in an Organized Health Care Education/Training Program
DX: N83.292 Other ovarian cyst, left side (principal)
CPT/HCPCS: 76830

== ENCOUNTER 2025-08-16 15:38 | Outpatient (RCR) | payer BC, SELFPAY ==
--- NOTE | 2025-08-19 22:57 | CTCFLWUP_ITS ---
Patient: SAMEER ORTA : 1975 Page 3 of 4 FOLLOW UP NOTE DATE OF SERVICE: 08/16/2025 NAME: SAMEER ORTA ACCOUNT: [id number] : 1975 AGE: 50 INTERVAL HISTORY: Patient is a 50-year-old woman who was seen with the concerning for recurrence. Patient had CT scan on 04/26/2025 Which was concerning for left external iliac lymphadenopathy. Patient had biopsy and that lymph node is noted to be likely left ovary of Ms. Orta. PET CT scan on 07/31/2025 is negative. No cancer recurrence ONCOLOGY HISTORY: DIAGNOSIS: Cervical cancer s/p hysterectomy DATE OF DIAGNOSIS: 09/18/2013 STAGE/TNM: Stage I 09/18/20 13 severe dysplasia with a squamous carcinoma in situ involving surface and underlying metaplastic endocervical glands JACKSON-3 and HSIL adenocarcinoma in situ identified in separate fragmented and inflamed strips of endocervical mucosa endometrial biopsy was negative 10/19/2013 Uterine cervix with invasive adenocarcinoma 1 cm in maximum width 10.6 cm maximum depth tumor grade G3 poorly differentiated no lymphatic invasion carcinoma did not extend to uterine corpus proliferative endometrium without endometrial hyperplasia or malignancy uterine serosa without significant diagno stic pathological features uterine corpus shows focal superficial adenomyosis with no features of cancer final stage stage I B1 T1b 1 NX MX 08/06/[address] left illac. CT guided needle biopsy: - Benign soft tissue and scant glandular epithelium. - The spindled stromal cells are marked by the lHCV stains for estrogen receptor and progesterone receptor (weak to moderately strong staining). - Very rare lymphocytes, no evidence of lymphoid tissue - The histology and IHC staining results are consistent with fragments of ovarian stroma. 07/31/[address] scan negative TREATMENT HISTORY: Care?Plan Start?Date Cycle Day Intent HISTORY OF PRESENT ILLNESS: 50-year-old female is presenting with a recent finding of lymphadenopathy on her CT scan patient do not have any complaints. Patient had stage I cervix cancer which was treated with hysterectomy. 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 rosuvastatin - 10 mg 1 tab Daily Medications Last Reconciled by Nancy Baez MD on 08/16/2025 ALLERGIES: No Known Drug Allergies REVIEW OF SYSTEMS: A complete 14-point review of systems was performed and is negative except as noted in interval history. PHYSICAL EXAMINATION: VITAL SIGNS: Temperature?98.5, B/P?156/91, Oxygen?Saturation?97% Weight?185?lbs PAIN: 0 - No pain ECOG Performance Status: None GENERAL APPEARANCE: Appears well, in no apparent distress, appropriately interactive. HEENT: Normocephalic, no temporal wasting, normal conjunctiva, no scleral icterus, normal hearing, lips without lesions, neck normal range of motion. CARDIOVASCULAR: Not assessed. PULMONARY: Normal respiratory effort, no respiratory distress or use of accessory muscles, speaking in full sentences, no tachypnea. EXTREMITIES: No pedal edema or cyanosis. SKIN: Normal skin appearance. NEUROLOGIC: Alert and oriented x4. PSHYCHIATRIC: Appropriate affect, mood normal, behavior normal, intact thought and speech. LABORATORY DATA: I have personally reviewed and interpreted each of the patient?s relevant lab tests, abnormal findings are below: Date 08/03/25 08/09/25 ??WHITE?BLOOD?COUNT?(Thou/mm3) 7.6 8.1 ??RED?BLOOD?COUNT?(Miln/mm3) 4.27 4.20 ??HEMOGLOBIN?(gm/dl) 13.6 13.3 ??HEMATOCRIT?(%) 38.5 37.9 ??PLATELET?COUNT?(Thou/mm3) 316 319 ??NEUTROPHILS?%,?AUTO?(%) 68 58 ??LYMPH?%,?AUTO?(%) 25 31 ??NEUTROPHILS,?AUTO?(Thou/mm3) 5.2 4.7 ??GLUCOSE,RANDOM?(mg/dL) ? 129?H ??BLOOD?UREA?NITROGEN?(mg/dL) 7?L 6?L ??CREATININE?(mg/dL) ? 0.80 ??SODIUM?(mmol/L) ? 139 ??POTASSIUM?(mmol/L) ? 3.6 ??CHLORIDE?(mmol/L) ? 103 ??CrCl?(CandG)?(ml/min) ? 85.89 ??AST/SGOT?(Unit/L) ? 25 ??ALT/SGPT?(Unit/L) ? 27 ??ALKALINE?PHOSPHATASE?(Unit/L) ? 54 ??BILIRUBIN,?TOTAL?(mg/dL) ? 0.6 ??PROTEIN?TOTAL?(gm/dl) ? 6.6 ??ALBUMIN,?SERUM?(gm/dl) ? 4.2 ??GLOBULIN?(gm/dl) ? 2.4 ??ALBUMIN/GLOBULIN?RATIO ? 1.8 ??CALCIUM,?SERUM?(mg/dL) ? 9.1 ??CALCIUM?SERUM?(CORRECTED)?(mg/dL) ? 9.1 ASSESSMENT/PLAN: cervical cancer CT scan from 04/26/2025 was concerning for left lymphadenopathy Biopsy was done and is read as likely left ovary and was found to be benign PET CT scan completed on 07/31/2025 do not show any hypermetabolic lesion Patient advised to follow-up with gynecology RTC in 6 months with [facility] results ORDERS: Order # Description [id number] Follow Up 4 Month RETURN TO CLINIC: I reviewed the diagnosis, prognosis, and recommended treatment/procedure options with the patient (and/or their legal motor vehicle representative), including the potential benefits, risks, side effects and alternative therapies. We also discussed the option of no treatment and the possibility of clinical trial participation, if applicable. All questions were addressed, and they demonstrated understanding. They provided informed consent to proceed with the proposed plan of care. BILLING AND COMPLIANCE: I reviewed external records from providers outside my specialty as summarized above. I spent a total of 50 minutes on this patient?s care on the day of their visit excluding time spent related to any billed procedures. This time includes time spent with the patient as well as time spent documenting in the medical record, reviewing patients records and tests, obtaining history, placing orders, communicating with other healthcare professionals, counseling the patient, family or caregiver, and/or care coordination for the diagnoses above. Electronically Signed by: {Object.Sanct_ID*[email or web address]@M}, {Object.Sanct_ID*PnP.Suffix@U} D: {Object.Sanct_Date} T: {Object.Sanct_Time} CC: PCP: Josh Valdes Referring: Josh Valdes This document was completed utilizing speech recognition software. Grammatical errors, random word insertions, pronoun errors, and incomplete sentences are an occasional consequence of this system due to software limitations, ambient noise, and hardware issues. Any formal questions or concerns about the content, text or information contained within the body of this dictation should be directly addressed to the provider for clarification.
== END 2025-08-24 23:59 | disposition home or self-care (01) ==
LOC: SCTC 15:38
PROVIDERS: PCP Physician Assistant; Referring Provider Student in an Organized Health Care Education/Training Program; Visit Provider Internal Medicine Hematology & Oncology
DX: Z08 Encounter for follow-up examination after completed treatment for malignant neoplasm (principal); Z85.41 Personal history of malignant neoplasm of cervix uteri; Z90.710 Acquired absence of both cervix and uterus
CPT/HCPCS: 99212; G0463

== ENCOUNTER → 2025-09-27 | Outpatient (CLI) | payer BC, SELFPAY ==
--- NOTE | 2025-09-27 11:00 | XR_ITS ---
Examination: Transvaginal ultrasound of the pelvis, complete Technique: Transvaginal sonographic images pelvis performed using khan scale imaging Exam date and time: September 27, 2025, 1115 hours INDICATIONS: Left lower abdominal pain 6 months right lower abdominal pain 1 month, partial hysterectomy history FINDINGS: Absent uterus Ovaries obscured by bowel gas IMPRESSION: Limited study, abundant bowel gas No pelvic mass demonstrated.
== END | disposition home or self-care (01) ==
LOC: CDIM 10:49
PROVIDERS: PCP Physician Assistant; Referring Provider Internal Medicine Hematology & Oncology; Visit Provider Internal Medicine Hematology & Oncology
DX: R10.32 Left lower quadrant pain (principal); R10.31 Right lower quadrant pain; C53.9 Malignant neoplasm of cervix uteri, unspecified
CPT/HCPCS: 76830

== ENCOUNTER → 2025-10-08 | Outpatient (CLI) | payer BC, SELFPAY ==
--- NOTE | 2025-10-08 16:38 | XR_ITS ---
EXAMINATION: AP pelvis single view TECHNIQUE: AP pelvis single view Date and time: October 08, 2025, 1642 hours INDICATIONS: Bilateral hip pain 1 month. FINDINGS: No hip or pelvic fracture. No significant hip joint narrowing Minimal right hip osteoarthritis IMPRESSION: Minimal right hip osteoarthritis
== END | disposition home or self-care (01) ==
LOC: CDIM 16:29
PROVIDERS: PCP Family Medicine; Referring Provider Physician Assistant; Visit Provider Physician Assistant
DX: M16.11 Unilateral primary osteoarthritis, right hip (principal); M25.552 Pain in left hip
CPT/HCPCS: 72170